=== PATIENT | female | born 2005 ===

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

== ENCOUNTER 2024-03-15 18:07 | Outpatient (CLI) | payer OTHER, SELFPAY ==
--- OUTSIDE RECORDS SUMMARY | 2024-03-18 07:04 | XMS_ITS | Clinical Summary ---
Author Organization [facility] Address Regional Office [address] [place] [address] Care Team Providers Care Communications Attendant Name Role Phone Ruma Pino (Job) JOB Primary Care Flora reinoso Unavailable Source Comments NOTE: The information displayed by Care Everywhere is extracted from the complete medical record and may not identify all current or past patient conditions.[facility] Allergies Active Allergy Reactions Criticality Noted Date [...] by following provider Fabiano Lynn, PIYUSH, MSN, PMHNP-[facility] Psychiatry [address] [place] [address] (t) [phone] (f) NPI# [id number] REVIEW OF MEDICATIONS 01/07/2023 Overview (01/07/2023): PA [...] Comments A1C 2004 Document Tobacco History 2004 [place] for .org 2004 Discuss Syphilis Screening 01/09/2022 [...] CALC LDL, HDL/LDL RATIO) (06/26/2023 9:59 AM [facility]) Cholesterol 138 0 - 199 mg/dL [facility] [...] 9 :59 AM MST 06/26/2023 4:54 PM [facility] Narrative [facility] - 06/26/2023 5:25 PM [facility] For LDL levels above 190 mg/dL, cholesterol [...] 39 year, preeclampsia during , [place] ancestry. [place] LDL goals for patients taking cholesterol medication [...] Faxed Results BLOOD [facility] [address] [address] * COMPREHENSIVE METABOLIC PANEL (NA,K,CL,CO2,BUN,CR, GLUC,CA,ALB,TBILI,TPROT,ALT,AST,ALKP) (06/26/2023 9:59 AM [facility]) Sodium 141 135 - 145 mEq/L [facility] [...] Faxed Results BLOOD [facility] [address] [place] [address] * CBC W AUTOMATED DIFFERENTIAL (06/26/2023 9:59 AM [facility]) WBC's, automated count 10.8 3.5 - 11.0 [...] BLOOD / Unknown 06/26/2023 9 :59 AM [facility] 06/26/2023 5:00 PM [facility] Generic Provider Faxed Results BLOOD Performing Organization Address [facility] Co de Phone Number [facility] [address] [place] [address] from Last 3 Months or Most Recently Relevant to Health Maintenance Care Teams Communications Attendant Relationship Specialty Start Date End Date Ruma Pino (Job), PA [address] [place] [address] PCP - General Family Practice 01/07/23
--- OUTSIDE RECORDS SUMMARY | 2024-03-18 07:05 | XMS_ITS | Patient Health Record ---
Author Organization [facility] Address [address] [place] [address] Care Team Providers Care Healthcare Project Manager Name Role Phone Ruma Pino Primary Care Provider [phone] Unavailable Allergies Allergen (clinical drug ingredient) Drug/Non Drug Allergy documented on EMR Reaction Allergy Type Onset Date Status zoloft at 25mg (uncoded) hypomania Allergy Active Reason For Referral Reason Suspected rebeca all ergy or sesame oil and maybe mel[facility], Dr Michel Ricketts if contracted with [place]. 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 confirmed Problem Developmental dyslexia (595632012) Developmental dyslexia (315.02) Active confirmed Problem Constipation (33590536) Unspecified constipation (564.00) Active confirmed Problem Sleep disturbance (90388291) Unspecified sleep disturbance (780.50) Active confirmed Problem 35431407 PTSD (post-traumatic stress disorder) (F43.10) Active confirmed Problem 75892817 Mood disorder (F39) Active confirmed Problem 007646670 Dyslexia, developmental (F81.0) Active confirmed Problem Postural orthostatic tachycardia syndrome (disorder) (985031356) POTS (postural orthostatic tachycardia syndrome) (G90.A) Active [...] Date Provider Diagnosis Tho [facility] [address] [place] [phone] 06/26/2023 Ruma Pino Routine medical exam Z00.00 ; History of anaphylaxis Z87.892 and POTS (postural orthostatic tachycardia syndrome) G90.A [facility] [address] [place] [phone] 03/31/2023 Ruma Pino [facility] [address] [place] [phone] 06/25/2023 Ruma Pino [facility] [address] [place] [phone] 06/25/2023 Ruma Pino Assessments Encounter Date Diagnosis [...] Contrast 2014 Cortisol 03/04/2023 Ferritin, Serum (LC [id number]) 03/04/2023 CBC With Differential/[place]atelet (LC [address]025 [id number]) 03/04/2023 Lipid Panel ( [id number]) 03/04/2023 CMP14+eGFR 03/04/2023 CBC with Plt + Diff 03/22/2014 ASO 02/07/2014 CMP Calculations 03/22/2014 DNASE B Antibody 02/07/2014 Vitamin D, 25-Hydroxy ( 457587) 2022 Next Appt Details Provider Name:Ruma Wellsnikko cummins, 07/07/2024 03:00:00 PM, [address] [facility], [address], [place], [address], Insurance Providers Payer Name Payer Address Payer Phone Subscriber Number Group Number Insured Name Patient Relationship to Insured Coverage Start Date Coverage End Date [facility] [address] [place] [address] [id number] Manpreet Srinivasan Self - patient is the insured 3 Medical (General) History Medical History History ICD Code Developmental Dyslexia Mood disorder F39 PTSD (post-traumatic stress disorder) F4 3.10 Dyslexia, developmental F81.0 POTS (postural orthostatic tachycardia s yndrome) G90.A Allergy to melons, rebeca. Diagnosed with POTS, 2019, w orse after COVID 19. Diagnosed by [facility] and cardiology. Felecia Dunn is Nurse practioner for psychiatry. Serology done with Felecia Dunn CMP, thyroid, parathyroid. [facility] record s in Documents [id number]. Diagnosis POTS in these notes. Surgical History Surgery Date(Month/Year) wisdom teeth extraction 06/25/23
== END 2024-03-15 18:08 | disposition home or self-care (01) ==
LOC: AMB 03-18 07:03
PROVIDERS: Visit Provider Emergency Medicine
DX: R06.09 Other forms of dyspnea (principal); T78.49XA Other allergy, initial encounter
CPT/HCPCS: A0998

== ENCOUNTER 2024-03-15 18:57 | Emergency (ER) | payer OTHER, SELFPAY ==
[2024-03-15 19:02] VITALS: BP 120/70; PULSE 66; RESP 16; TEMP 37.4; O2SAT 100; BMI 24.2
--- NOTE | 2024-03-15 19:35 | ED.GENADULT ---
HPI - General Adult General Date Seen: 03/15/24 Chief complaint: Allergic Reaction Stated complaint: Allergic reaction, used epi pen Time Seen by Provider: 03/15/24 19:31 History of Present Illness HPI narrative: 19-year-old female with a past medical history of POTS, rebeca allergy, presenting to the ER today with her [facility] roommate and friend for evaluation alert allergic reaction and throat swelling. She is from [place]. She has a known history of allergic reaction to rebeca and has a standby EpiPen that she carries with her in her bag. She was at dinner this evening in the [employer] cafeteria when she was eating a piece of chicken. Shortly after swallowing a chicken she began to develop irritation and swelling in her throat with some raspiness of her voice. She started to feel short of breath. Although she was told there was no rebeca in the chicken, she suspects there probably was. She treated herself with 50 mg of oral Benadryl. Her friends called the EMT [facility]. After [employer] arrived the patient self administered a EpiPen into her thigh. After taking the EpiPen she began to feel somewhat better but came here to the ER. It is now been almost 2 hours since she gave herself her EpiPen and she started to have ?a crackly voice and some pain in her throat. No hives. No abdominal pain. She is not short of breath. Mental status normal. Related Data Home Medications ?Medication ?Instructions ?Recorded ?Confirmed aripiprazole 2 mg tablet PO 08/17/23 carbamazepine 400 mg 400 mg PO BID 08/17/23 08/17/23 tablet,extended release,12 hr epinephrine 0.3 mg/0.3 mL IM 08/17/23 injection, auto-injector gabapentin 100 mg capsule 100 mg PO DAILY 08/17/23 08/17/23 hydroxyzine HCl 25 mg tablet 25 mg PO QID 08/17/23 08/17/23 Previous Rx's ?Medication ?Instructions ?Recorded cetirizine 10 mg capsule 10 mg PO DAILY #7 caps 03/15/24 epinephrine 0.3 mg/0.3 mL 0.3 mg (0.3 mL) IM Q5-15M PRN #2 ea 03/15/24 injection, auto-injector (EpiPen) Allergies Allergy/AdvReac Type Severity Reaction Status Date / Time rebeca Allergy Severe Anaphylaxis Verified 03/15/24 19:01 melon Allergy Verified 03/15/24 19:01 palm oil Allergy Verified 03/15/24 19:01 venom-wasp Allergy Verified 03/15/24 19:01 [facility] Medical History (Updated 03/15/24 @ 22:24 by Jose Macdonald MD) No significant past medical history Surgical History No significant past surgical history Social History Smoking Status: Never smoker Second hand tobacco smoke exposure: No How often do you have a drink containing alcohol: never AUDIT-C Alcohol total score: 0 Non-prescribed substance use: denies use Exam Narrative: Exam Narrative: Constitutional: Appears well-developed and well-nourished. Alert. Conversant. Non toxic. HENT: Head: Atraumatic. Nose: Nose normal. Mouth/Throat: Oral mucosa is clear and moist. no trismus. Pharynx normal. Tongue normal. No trismus Tonsils symmetric. No tonsillar enlargement, erythema, or exudate. She is not having any stridor but she does have a somewhat raspy voice. Frequently clearing her throat. Eyes: Conjunctivae normal. EOM normal. Pupils equal, round, and reactive to light. No scleral icterus. Neck: Normal range of motion. Neck supple. No tracheal deviation present. Cardiovascular: Normal rate, regular rhythm. No gallop. No friction rub. No murmur heard. Symmetric radial artery pulses Pulmonary/Chest: Effort normal. No stridor. No respiratory distress. No wheezes. No rales. No rhonchi . No tenderness. Abdominal: Soft. Bowel sounds normal. No distension. No mass. No tenderness. No rebound. No guarding. Musculoskeletal: RUE: Normal range of motion. No tenderness. No deformity LUE: Normal range of motion. No tenderness. No deformity RLE: Normal range of motion. No edema. No tenderness. No deformity LLE: Normal range of motion. No edema. No tenderness. No deformity Lymph: No cervical adenopathy. Neurological: Alert and oriented to person, place, and time. Normal strength. CN II-VII intact. No sensory deficit. GCS eye subscore is 4. GCS verbal subscore is 5. GCS motor subscore is 6. Normal coordination Skin: Skin is warm and dry. No rash noted. No pallor. Normal capillary refill. Psychiatric: Normal mood. Normal affect. Const: Vital Signs, click to edit/add: Vital Signs - 24 hr 03/15/24 19:02 03/15/24 21:12 03/15/24 22:34 Temperature 99.3 F 99.3 F Pulse Rate [Pulse Oximeter] 66 68 Respiratory Rate 16 16 Blood Pressure [Ri ght Upper Arm] 120/70 118/68 Pulse Oximetry 100 99 99 Oxygen Delivery Me thod Room Air Room Air 03/15/24 22:36 Temperature 99.3 F Pulse Rate [Pulse Oximeter] 68 Respiratory Rate 16 Blood Pressure [Ri ght Upper Arm] 118/68 Pulse Oximetry Oxygen Delivery Me thod Course Course ED Course: Recheck-voice back to normal and throat feeling better after appy administered Reevaluation(s) Reevaluation #1: Recheck remains stable. No recurrent symptoms yet Reevaluation #2: Recheck-now 3 hours of her epi and remains asymptomatic Vital Signs Vital signs: Initial Vital Signs Temperature 99.3 F 03/15/24 19:02 Temperature Source Temporal Artery Scan 03/15/24 19:02 Pulse Rate 66 03/15/24 19:02 Respiratory Rate 16 03/15/24 19:02 Blood Pressure 120/70 03/15/24 19:02 Blood Pressure Mean 86 03/15/24 19:02 Blood Pressure Position Sitting 03/15/24 19:02 Pulse Oximetry 100 03/15/24 19:02 Oxygen Delivery Method Room Air 03/15/24 19:02 Vital Signs Temperature 99.3 F 03/15/24 19:02 Pulse Rate 66 03/15/24 19:02 Respiratory Rate 16 03/15/24 19:02 Blood Pressure 120/70 03/15/24 19:02 Pulse Oximetry 100 03/15/24 19:02 Oxygen Delivery Method Room Air 03/15/24 19:02 Temperature 99.3 F 03/15/24 22:36 Pulse Rate 68 03/15/24 22:36 Respiratory Rate 16 03/15/24 22:36 Blood Pressure 118/68 03/15/24 22:36 Pulse Oximetry 99 03/15/24 22:34 Oxygen Delivery Method Room Air 03/15/24 22:34 Medications Administered Medications: Discontinued Medications Generic Name Dose Route Start Last Admin Trade Name Freq PRN Reason Stop Dose Admin Epinephrine HCl 0.3 mg 03/15/24 19:49 03/15/24 19:57 Epinephrine 0.3 Mg Pen IM 03/15/24 19:50 0.3 mg ONCE ONE Administration Epinephrine HCl 0.3 mg 03/15/24 22:18 03/15/24 22:28 Epinephrine 0.3 Mg Pen IM 03/15/24 22:19 0.3 mg ONCE ONE Administration Famotidine 20 mg 03/15/24 19:49 03/15/24 19:57 Famotidine 20 Mg Tablet PO 03/15/24 19:50 20 mg ONCE ONE Administration Medical Decision Making MDM Narrative Medical decision making narrative: This patient presents for evaluation of allergic reaction after she presumably was exposed to some rebeca in her college cafeteria this evening.. Signs and symptoms are consistent with allergic reaction. She did have symptoms of voice change and sore throat. Fortunately airway remained patent throughout her ER course. No bronchospasm, GI symptoms, hypotension, or other sign of anaphylaxis. Patient was treated here with medications as noted above. Symptoms improved after meds. Will send home with epipen, antihistamines. She has had significant negative reactions to steroids in the past so we will hold off on them for now. Potential for rebound reaction was discussed. Return of anaphylactic symptoms were discussed with patient and they were instructed to inject epi-pen and call 911 should these symptoms occur. Given the rapidity of resolution, lack of serious systemic symptoms, lack of respiratory difficulty and no oral or pharyngeal swelling, would not admit at this time for anaphylaxis. There is no signs of anaphylactic shock. She is provided with an EpiPen to go home from the ER tonight because it is too late for to get any prescriptions filled at the pharmacy. She requests that we print out paper copies of her prescriptions for have EpiPen refill and for antihistamines because her insurance is through [employer] in [place] and would not cover most local pharmacies. Discharge Plan Discharge Clinical Impression: Allergic reaction Patient Disposition: Home, Self-Care Condition: Stable Instructions: Food Allergy (ED), General Allergic Reaction (ED) Additional Instructions: As we discussed, monitor carefully for any signs of recurring or rebounding symptoms. If you have trouble breathing or swelling in your throat, use your EpiPen and return to the ER immediately (call 911 if necessary). To help prevent rebound reactions, use antihistamines. You can use Benadryl 25 mg every 6 hours if needed, , but this causes drowsiness. You could also use cetirizine 10 mg once daily as needed. cetirizine tends to cause less drowsiness Prescriptions: New cetirizine 10 mg capsule 10 mg PO DAILY Qty: 7 0RF epinephrine [EpiPen] 0.3 mg/0.3 mL auto-injector 0.3 mg IM Q5-15M PRNQty: 2 0RF Rx Instructions: do not exceed 3 doses per episode No Action carbamazepine 400 mg tablet extended release 12 hr 400 mg PO BID hydroxyzine HCl 25 mg tablet 25 mg PO QID gabapentin 100 mg capsule 100 mg PO DAILY epinephrine 0.3 mg/0.3 mL auto-injector IM aripiprazole 2 mg tablet PO Follow Up/Referrals: Provider,Not a Local [Primary Care Provider] - Stand Alone Forms: Everyone Countsth Info Instructions
[2024-03-15] MEDS: EPINEPHrine 0.3 MG PEN IM ×2 (19:57→22:28)
[2024-03-15] MEDS: FAMOTIDINE 20 MG TABLET PO (19:57)
--- OUTSIDE RECORDS SUMMARY | 2024-03-15 19:57 | XMS_ITS | Patient Health Record ---
Author Organization [facility] Address [address] [place] [address] Care Team Providers Care Alumnae Secretary Name Role Phone Ruma Pino Primary Care Provider Leobardo Nobles Unavailable Allergies Allergen (clinical drug ingredient) Drug/Non Drug Allergy documented on EMR Reaction Allergy Type Onset Date Status zoloft at 25mg (uncoded) hypomania Allergy Active Reason For Referral Reason Suspected rebeca all ergy or sesame oil and maybe melon [facility], Dr Michel Ricketts if contracted with [facility]. [facility] Allergy second choice Diagnosis 1 History of anaphylax is (Z87.892) Referral Organization [facility] Referring Provider First Name Ruma Referring Provider Last Name Alvarez Referring Provider Speciality [facility] Referred Provider [facility] [place] [facility] Referred Provider Specialty Otolaryngolo gy General Notes Michael Owen 06/06 11:42:57 AM > Referral faxed, patient notified via sms, portal. Requested facilities do not take pt's insurance. Referral Priority Routine Medications Medication SIG (Take, Route, Frequency, Duration) Notes [...] Orally Thre e times a day Active Immunizations Vaccine Route Administration Date Status Comme nts [...] 01/25/2015 Administered Typhoid (ViCPs) Unknown 01/12/2017 Administered Social History Tobacco Use: Social History Observation Description Date Details (start date - stop date) Never Smoker NA - NA Tobacco Use/Smoking Question Answer Notes Are you a nonsmoker Alcohol Screen Question Answer Notes Did you have a drink containing alcohol in the p ast year? 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 confirmed Problem Developmental dyslexia (952840015) Developmental dyslexia (315.02) Active confirmed Problem Constipation (42462920) Unspecified constipation (564.00) Active confirmed Problem Sleep disturbance (22737399) Unspecified sleep disturbance (780.50) Active confirmed Problem 69408427 PTSD (post-traumatic stress disorder) (F43.10) Active confirmed Problem 22659387 Mood disorder (F39) Active confirmed Problem 098740068 Dyslexia, developmental (F81.0) Active confirmed Problem Postural orthostatic tachycardia syndrome (disorder) (176132778) POTS (postural orthostatic tachycardia syndrome) (G90.A) Active confirmed Vital Signs Heart Rate 68 /min 06/26/2023 Temperature 97.7 degrees Fahrenheit 06/26/2023 Respiratory Rate 18 /min 06/26/2023 Blood pressure diastolic 56 mm Hg 06/26/2023 Oximetry 98%RA % 06/26/2023 Weight-kg 67.13 kg 06/26/2023 Height 65.75 in 06/26/2023 BMI Percentile 73.58 % 06/26/2023 Blood pressure systolic 110 mm Hg 06/26/2023 Weight 148 lbs 06/26/2023 BMI 24.07 kg/m2 06/26/2023 Encounters Encounter Location Date Provider Diagnosis [facility] [address] [place] [phone] 06/26/2023 Ruma Pino Routine medical exam Z00.00 ; History of anaphylaxis Z87.892 and POTS (postural orthostatic tachycardia syndrome) G90.A [facility] [address] [place] [phone] 03/31/2023 Ruma Pino [facility] [address] [place] [phone] 06/25/2023 Ruma Pino [facility] [address] [place] [phone] 06/25/2023 Ruma Pino Assessments Encounter Date Diagnosis (ICD Code) Assessment Notes Treatment Notes Treatment Clinical Notes 06/26/2023 Routine medical exam (ICD-10 - Z00.00) [...] - G90.A) Chronic. Stable. Continue lifestyle modifications. 06/26/2023 Other Heart healthy diet material was [...] and addressed by me today for patient. Plan Of Treatment Pending Test Test Name Order Date Rapid Strep 02/07/2014 CT Scan : Head W and W/O Contrast 2014 Cortisol 03/04/2023 Ferritin, Serum (LC [id number]) 03/04/2023 CBC With Differential/Platelet (LC [id number]) 03/04/2023 Lipid Panel ( [id number]) 03/04/2023 CMP14+eGFR 03/04/2023 CBC with Plt + Diff 03/22/2014 ASO 02/07/2014 CMP Calculations 03/22/2014 DNASE B Antibody 02/07/2014 Vitamin D, 25-Hydroxy ( [id number]) 2022 Next Appt Details Provider Name:Ruma Wellsnikko cummins, 07/07/2024 03:00:00 PM, [address] [facility], [address], [place], [address], Insurance Providers Payer Name Payer Address Payer Phone Subscriber Number Group Number Insured Name Patient Relationship to Insured Coverage Start Date Coverage End Date [facility] [address] [place] [address] [id number] Manpreet Srinivasan Self - patient is the insured 3 Medical (General) History Medical History History ICD Code Developmental Dyslexia Mood disorder F39 PTSD (post-traumatic stress disorder) F4 3.10 Dyslexia, developmental F81.0 POTS (postural orthostatic tachycardia s yndrome) G90.A Allergy to melons, rebeca. Diagnosed with POTS, 2019, w orse after COVID 19. Diagnosed by electronics technology instructor and cardiology. Felecia Dunn is Nurse practioner for psychiatry. Serology done with Felecia Dunn CMP, thyroid, parathyroid. [facility] record s in Documents [id number]. Diagnosis POTS in these notes. Surgical History Surgery Date(Month/Year) wisdom teeth extraction 06/25/23
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
[2024-03-15 21:12] VITALS: O2SAT 99
[2024-03-15 22:34] VITALS: BP 118/68; PULSE 68; RESP 16; TEMP 37.4; O2SAT 99
[2024-03-15 22:36] VITALS: BP 118/68; PULSE 68; RESP 16; TEMP 37.4
== END 2024-03-15 22:36 | disposition home or self-care (01) ==
PROVIDERS: Emergency Provider Emergency Medicine
DX: T78.40XA Allergy, unspecified, initial encounter (principal)
CPT/HCPCS: 94761; 96372; 99283; 99284; A9270; J0171